=== PATIENT | male | born 1970 | race Caucasian/White ===

== ENCOUNTER 2016-05-19 14:44 | Emergency (ER) | payer OTHER ==
[~2016-05-19] VITALS: Ht 170.2 cm; Wt 114.0 kg
[~2016-05-19 14:44] MED LIST: ATORVASTATIN CA20 MG PO; LISINOPRIL10 MG PO; NAPROSYN500 MG PO
[2016-05-19 16:04] LABS: HEMATOCRIT 46.5 % (38.0-50.0); MCV 82.4 FL (86-99); PLATELET COUNT 257 K/uL (156-360); RBC DIS.WIDTH-CV 12.5 % (11.8-14.6); RBC DIS.WIDTH-SD 37.7 % (39-53); RED BLOOD COUNT 5.64 M/uL (4.00-5.50); WHITE BLOOD COUNT 5.9 K/uL (4.1-10.2)
[2016-05-19 16:22] LABS: CHLORIDE 107 mEq/L (99-109); POTASSIUM 3.9 mEq/L (3.7-5.4); SODIUM 139 mEq/L (136-147)
[2016-05-19 16:24] LABS: GLUCOSE 104 mg/dL (70-99)
[2016-05-19 16:25] LABS: ANION GAP 9 MEQ/L (2-14)
[2016-05-19 16:26] LABS: TOTAL BILIRUBIN 0.7 mg/dL (0.0-1.0)
[2016-05-19 16:27] LABS: ALKALINE PHOSPHATASE 97 IU/L (3-129)
[2016-05-19 16:28] LABS: GFR ESTIMATE (CALCULATED) > 59 mL/min/
[2016-05-19 16:29] LABS: UREA NITROGEN (BUN) 16 mg/dL (9-23)
[2016-05-19 16:31] LABS: TROP-I INTERPRETATION NEGATIVE; TROPONIN-I < 0.01 ng/mL (0.0-0.30)
[2016-05-19] MEDS ORDERED: FLONASE ALLERG9.9 ML BOTH NARES (16:45)
[2016-05-19] MEDS ORDERED: ZYRTEC10 M3 PO (16:45)
[2016-05-19] MEDS ORDERED: NAPROSYN500 MG PO (16:45)
[2016-05-19 17:12] VITALS: BP 148/82
== END 2016-05-19 17:38 | disposition home or self-care (01) ==
LOC: EME 14:44
PROVIDERS: Nurse Practitioner Family
DX: J06.9 Acute upper respiratory infection, unspecified (principal); M94.0 Chondrocostal junction syndrome [Tietze]; J30.9 Allergic rhinitis, unspecified; E78.5 Hyperlipidemia, unspecified; I10 Essential (primary) hypertension
CPT/HCPCS: 71020; 80053; 84484; 85027; 93005; 99281; 99285; J1885; J2405